=== PATIENT | male | born 1965 | race Caucasian/White ===

== ENCOUNTER 2020-08-14 12:14 | Day surgery (SDC) | payer BC, OTHER ==
[2020-08-14] VITALS (9 sets, daily range): BP systolic 96–146; BP diastolic 63–85
[~2020-08-14] VITALS: Ht 185.4 cm; Wt 98.2 kg
[2020-08-14] MEDS ORDERED: normal saline 1,000 ML IV SCH (12:45)
[2020-08-14] MEDS ORDERED: diphenhydrAMINE 25mg capsule PO PRN (12:45)
[2020-08-14] MEDS ORDERED: ATOR40TA72 PO (12:47)
[2020-08-14] MEDS ORDERED: NITR0.4T51 SL (12:47)
[2020-08-14] MEDS ORDERED: METO-395 PO (12:47)
[2020-08-14] MEDS ORDERED: MULT-1085 PO (12:51)
[2020-08-14] MEDS ORDERED: TESTOSTERONE PO (12:51)
[2020-08-14] MEDS ORDERED: ASPI-611 PO (12:51)
[2020-08-14] MEDS ORDERED: OMEGA 3 (12:51)
[2020-08-14] MEDS ORDERED: proCHLORperazine 10 MG/2 ml inj ONE (12:54)
[2020-08-14] MEDS ORDERED: fentaNYL/PF 50MCG/1 ML 2ML syringe ONE ×2 (12:55→13:24)
[2020-08-14] MEDS ORDERED: midazolam 2 mg/2 ml injection ONE ×2 (12:55→13:24)
[2020-08-14] MEDS ORDERED: iohexol 350MG/ML 100ml bottle IV ONE (12:55)
[2020-08-14] MEDS ORDERED: LIDOcaine 1% (10mg/ml)w/preservative injection 20ml MDV ONE (12:55)
[2020-08-14] MEDS ORDERED: iohexol 350 MG/ML 50ML vial IV ONE (12:55)
[2020-08-14 13:17] LABS: BASOPHILS % (AUTO) 0.4 % (0-1); EOSINOPHILS # (AUTO) 0.3 X10'3 (0-0.9); EOSINOPHILS % (AUTO) 3.4 % (0-6); HEMATOCRIT 48.8 % (42.0-52.0); HEMOGLOBIN 16.7 g/dl (14.0-17.9); LYMPHOCYTES # (AUTO) 1.4 X10'3 (1.1-4.8); LYMPHOCYTES % (AUTO) 16.5 % (21-51); MEAN CORPUSCULAR HEMOGLOBIN 32.9 PG (27.0-31.0); MEAN CORPUSCULAR HGB CONC 34.3 g/dL (33.0-36.5); MEAN CORPUSCULAR VOLUME 95.9 FL (78-98); MEAN PLATELET VOLUME 9.2 FL (7.4-10.4); MONOCYTES # (AUTO) 0.7 X10'3 (0-0.9); NEUTROPHILS # (AUTO) 6.1 X10'3 (1.8-7.7); NEUTROPHILS % (AUTO) 71.7 % (42-75); PLATELET COUNT 220 X10'3 (140-440); RED BLOOD COUNT 5.09 X10'6 (4.70-6.10); RED CELL DISTRIBUTION WIDTH 12.8 % (11.5-14.5); WHITE BLOOD COUNT 8.6 X10'3 (4.5-11.0)
[2020-08-14 13:27] LABS: ALBUMIN 4.4 G/DL (3.4-5.0); ANION GAP 9 (8-16); BLOOD UREA NITROGEN 17 MG/DL (7-18); CALCIUM 9.6 MG/DL (8.5-10.1); CHLORIDE 107 MMOL/L (99-107); CREATININE 1.13 MG/DL (0.60-1.10); GLUCOSE 106 MG/DL (70-104); MAGNESIUM 2.1 MG/DL (1.5-2.4); POTASSIUM 4.9 MMOL/L (3.5-5.1); SODIUM 145 MMOL/L (135-145); TOTAL CARBON DIOXIDE 29.3 MMOL/L (24-32); eGFR 67 ML/MIN
[2020-08-14] MEDS ORDERED: HYDROcodone/acetaminophen 10/325mg tab PO PRN (14:30)
[2020-08-14] MEDS ORDERED: HYDROcodone/acetaminophen 5mg/325mg tablet PO PRN (14:30)
[2020-08-14] MEDS ORDERED: proCHLORperazine 10 MG/2 ml inj IV PRN (14:30)
[2020-08-14] MEDS ORDERED: normal saline 1000ml 1,000 ML IV SCH (14:30)
--- NOTE | 2020-08-14 15:49 | NUR ---
Pt's heart rate occasionally drops in to upper 30's with immediate rebound to upper 40's. Pt asymptomatic, denies dizziness. Dr. Duque phoned, order received to make pt an appt for a 2 week holter study. Appt made for 08/15/2020 @ [id number].
== END 2020-08-14 17:15 | disposition home or self-care (01) ==
LOC: SSTAY O 12:14
PROVIDERS: ATTEND Internal Medicine Cardiovascular Disease
DX: R94.39 Abnormal result of other cardiovascular function study (principal); R07.89 Other chest pain; E78.5 Hyperlipidemia, unspecified; I20.9 Angina pectoris, unspecified; Z79.899 Other long term (current) drug therapy
CPT/HCPCS: 36415; 80048; 83735; 85025; 85610; 93005; 93458; 99152; C1760; C1769; C1894; J0780; J1644; J2001; J2250; J3010; Q9967; A4620; A4663; A6258